=== PATIENT | female | born 1990 | race Two or more races ===

== ENCOUNTER 2024-11-28 12:42 | Emergency (ER) | payer OTHER ==
[~2024-11-28] VITALS: Ht 160 cm; Wt 74.8 kg
[2024-11-28 12:49] VITALS: BP 117/73; TEMP 98.2
[2024-11-28] MEDS ORDERED: NAPR-1009 PO (13:32)
[2024-11-28 13:46] VITALS: O2SAT 99
== END 2024-11-28 13:47 | disposition home or self-care (01) ==
LOC: ER 12:51
DX: S63.592A Other specified sprain of left wrist, initial encounter (principal); S63.591A Other specified sprain of right wrist, initial encounter; V49.9XXA Car occupant (driver) (passenger) injured in unspecified traffic accident, initial encounter; W22.19XA Striking against or struck by other automobile airbag, initial encounter; Y93.89 Activity, other specified; Y92.415 Exit ramp or entrance ramp of street or highway as the place of occurrence of the external cause; Y99.8 Other external cause status
CPT/HCPCS: 73110